=== PATIENT | female | born 1970 | race Hispanic/Latino ===

== ENCOUNTER → 2019-01-06 | Outpatient (CLI) | payer BC ==
[~2019-01-06] MED LIST: ACETAMINOPHEN/CODEINE 300MG - 30MG TAB ONE; ATORVASTATIN CA20 MG PO; CINNAMON500 MG PO; GLIMEPIRIDE4 MG PO; GLUCOPHAGE500 MG PO; HYDRALAZINE HCL50 MG PO; HYZAAR 100-251 EACH PO; LIDOCAINE HCL 1% LOCAL INJ 20 ML VIAL ONE; VITAMIN B COMP1 EACH PO
[2019-01-06 11:10] LABS: APPEARANCE,CSF CLEAR (CLEAR); COLOR,CSF COLORLESS (COLORLESS); TUBE NUMBER 1; WHITE BLOOD CELL,CSF 0 cells/uL (0-5)
--- NOTE | 2019-01-06 13:05 | Diagnostic Imaging Report ---
Exam: Fluoroscopic guided lumbar puncture Clinical History: Headache, visual disturbance Consent: Benefits and risks were explained to the patient who gave consent to the procedure. Complication: None immediate. Fluoro Time: 0.2 Minutes Total Images: 4 Procedure: The patient was placed in prone position. 1% lidocaine was used as local anesthetic. A 20 gauge spinal needle was used to access the thecal sac at [id number] posteriorly under fluoroscopic guidance. The opening pressure, which was measured in prone position, was approximately 27 cm of water. Approximately 19 cc of CSF was obtained and placed in 4 separate vials. The closing pressure, which was measured in prone position, was approximately 14 cm water. The needle was removed. Hemostasis was achieved. The patient tolerated the procedure well without any adverse reactions. She left the department in stable condition. Impression: Successful fluoroscopic guided lumbar puncture as described above. Signed by: Dr. Tito Izaguirre MD on 01/06/2019 1:01 PM
[2019-01-12 15:10] LABS: IGG/ALB RATIO CSF 0.14 (0.00-0.25)
[2019-01-12 22:47] LABS: CSF/SERUM ALBUMIN INDEX 4 (0-8)
[2019-01-14 23:54] LABS: MYELIN BASIC PROTEIN, CSF 3.7 ng/mL (0.0-1.2)
== END ==
LOC: DX 07:17
PROVIDERS: ATTEND Psychiatry & Neurology Neurology
DX: G93.2 Benign intracranial hypertension (principal)
CPT/HCPCS: 36415; 62270; 77003; 82040; 82784; 82945; 83873; 83916; 84157; 87070; 87205; 89051; J2001

== ENCOUNTER → 2019-01-27 | Outpatient (CLI) | payer BC ==
[~2019-01-27] MED LIST changes: -ACETAMINOPHEN/CODEINE 300MG - 30MG TAB ONE; -LIDOCAINE HCL 1% LOCAL INJ 20 ML VIAL ONE
--- NOTE | 2019-01-27 09:13 | Diagnostic Imaging Report ---
EXAM: US RENAL RETROPERITONEAL COMP DATE: 01/27/2019 7:59 AM INDICATION: Chronic kidney disease COMPARISON: None FINDINGS: The right kidney is normal in size measuring 11.3 x 4.6 x 4.9 cm with cortical thickness of 1.7 cm. Cortical echogenicity is mildly increased. There is a simple cyst identified within the right kidney measuring 1.1 x 0.9 x 1.1 cm. There is no evidence for solid renal mass, hydronephrosis, or shadowing calculi. The left kidney is normal in size measuring 11.1 x 5.4 x 3.9 cm with cortical thickness of 1.6 cm. Cortical echogenicity is mildly increased. There is no evidence for solid renal mass, hydronephrosis, or shadowing calculi. The partially distended urinary bladder is grossly unremarkable. Prevoid volume is 167 cc. Bilateral ureteral jets are noted. IMPRESSION: Mildly increased renal cortical echogenicity which can be seen in the setting of medical renal disease. Otherwise, unremarkable renal ultrasound examination. Signed by: Dr. Jude Mays MD on 01/27/2019 9:10 AM
== END ==
LOC: US 07:51
PROVIDERS: ATTEND Internal Medicine Nephrology
DX: N18.3 Chronic kidney disease, stage 3 (moderate) (principal)
CPT/HCPCS: 76770; 76857

== ENCOUNTER 2022-05-08 09:19 | Inpatient (IN) | payer BC ==
[2022-05-07 09:09] LABS: CREATININE, SERUM 1.47 mg/dL (0.57-1.11)
[2022-05-07 09:20] LABS: BASOPHILS # (AUTO) 0.1 (0.0-0.1); BASOPHILS % 0.8 % (0.0-1.0); EOSINOPHILS # (AUTO) 0.7 (0.0-0.4); EOSINOPHILS % 7.2 % (0.0-6.0); HEMATOCRIT 41.3 % (34.2-44.1); HEMOGLOBIN 12.1 g/dL (12.0-16.0); LYMPHOCYTES # (AUTO) 2.6 (1.0-3.2); LYMPHOCYTES % 28.5 % (18.0-39.1); MEAN CORPUSCULAR HEMOGLOBIN 26.5 pg (28-32); MEAN CORPUSCULAR HGB CONC 29.3 g/dL (31-35); MEAN CORPUSCULAR VOLUME 90.4 fL (81-99); MONOCYTES # (AUTO) 0.6 (0.2-0.8); MONOCYTES % 6.2 % (4.4-11.3); NEUTROPHILS # (AUTO) 5.3 (2.1-6.9); NEUTROPHILS % 56.9 % (38.7-80.0); PLATELET COUNT 198 x10e3/uL (140-360); RED BLOOD COUNT 4.57 x10e6/uL (3.6-5.1); RED CELL DISTRIBUTION WIDTH 15.1 % (11.7-14.4)
[~2022-05-08 09:19] MED LIST changes: +ALLOPURINOL100 MG PO; +ASPIRIN81 MG PO; +BENICAR20 MG PO; +COREG12.5 MG PO; +FARXIGA5 MG PO; +FUROSEMIDE40 MG PO; +NOVOLOG100 UNIT/1 SC; +OMEPRAZOLE10 MG PO; +OZEMPIC0.25 MG/0. SC; +TRESIBA100 UNIT/1 SQ; +[UNRECOGNIZED DRUG - OTHER]
[2022-05-08] MEDS ORDERED: PIPERACILLIN/TAZOBACTAM 3.375 GM VIAL ONE (09:31)
[2022-05-08] MEDS ORDERED: GENTAMICIN 80MG/NS 100 ML 200 ML IV ONE (09:31)
[2022-05-08] MEDS ORDERED: REPATHA SY140 MG/1 M SQ (09:38)
[2022-05-08] MEDS ORDERED: POVIDONE IODINE 0.05% 0.05 % ML PO ONE (09:42)
[2022-05-08] MEDS ORDERED: LIDOCAINE HCL 2% LOCAL INJ 5 ML SDV VIAL INJ ONE (09:42)
[2022-05-08] MEDS ORDERED: GLYCOPYRROLATE INJ 0.2 MG/ML VIAL ONE (09:42)
[2022-05-08] MEDS ORDERED: ONDANSETRON HCL INJ 2MG/ML 2ML 2 MG/ML VIAL ONE (09:42)
[2022-05-08] MEDS ORDERED: EPHEDRINE SULFATE INJ 50 MG/ML VIAL ONE (09:42)
[2022-05-08] MEDS ORDERED: SEVOFLURANE INHAL SOLN 250 ML PEN BTL ONE (09:42)
[2022-05-08] MEDS ORDERED: PROPOFOL IV EMULSION 10 MG/ML 20 ML VIAL ONE (09:42)
[2022-05-08] MEDS ORDERED: ROCURONIUM BROMIDE 10 MG/ML 5ML VIAL IV ONE (09:42)
[2022-05-08] MEDS ORDERED: DEXAMETHASONE SOD PHOS INJ 4 MG/ML SDV ONE (09:42)
[2022-05-08] MEDS ORDERED: MIDAZOLAM HCL 2 MG/2 ML VIAL ONE (10:10)
[2022-05-08] MEDS ORDERED: FENTANYL CITRATE/PF 100MCG/2 ML INJ ONE (10:10)
[2022-05-08] MEDS ORDERED: LIDOCAINE 2%/ EPINEPHRINE 20ML MDV ONE (11:28)
[2022-05-08] MEDS ORDERED: GENTAMICIN SULFATE 40 MG/ML 2 ML VIAL ONE (11:28)
[2022-05-08] MEDS ORDERED: METHYLENE BLUE 1% INJ 10 ML VIAL INJ ONE (11:28)
[2022-05-08] MEDS ORDERED: BACITRACIN ZINC 15 GM OINT ONE (11:28)
[2022-05-08] MEDS ORDERED: BUPIVACAINE HCL 0.5% INJ 30 ML VIAL INJ ONE (11:28)
[2022-05-08] MEDS ORDERED: ACETAMINOPHEN 1000 MG/100 ML 100 ML IV ONE (11:29)
[2022-05-08] MEDS ORDERED: SUGAMMADEX SODIUM 200 MG/2 ML VIAL IV ONE (11:29)
[2022-05-08] MEDS ORDERED: IOPAMIDOL 300MG/ML 50ML INFUS..BTL IV ONE (11:29)
[2022-05-08] MEDS ORDERED: TRAMADOL HCL 50 MG TAB PO PRN (11:45)
[2022-05-08] MEDS ORDERED: PHENAZOPYRIDINE HCL 100 MG TAB PO PRN (11:45)
[2022-05-08] MEDS ORDERED: DIPHENHYDRAMINE HCL 25 MG CAP PO PRN (11:45)
[2022-05-08] MEDS ORDERED: ONDANSETRON HCL INJ 2MG/ML 2ML 2 MG/ML VIAL IV PRN (11:45)
[2022-05-08] MEDS ORDERED: ACETAMINOPHEN 1000 MG/100 ML IV PRN (11:45)
[2022-05-08 14:53] LABS: BASOPHILS # (AUTO) 0.1 (0.0-0.1); BASOPHILS % 0.6 % (0.0-1.0); EOSINOPHILS # (AUTO) 0.3 (0.0-0.4); EOSINOPHILS % 2.8 % (0.0-6.0); HEMATOCRIT 40.8 % (34.2-44.1); HEMOGLOBIN 11.9 g/dL (12.0-16.0); LYMPHOCYTES # (AUTO) 1.7 (1.0-3.2); LYMPHOCYTES % 17.7 % (18.0-39.1); MEAN CORPUSCULAR HEMOGLOBIN 26.4 pg (28-32); MEAN CORPUSCULAR HGB CONC 29.2 g/dL (31-35); MEAN CORPUSCULAR VOLUME 90.7 fL (81-99); MONOCYTES # (AUTO) 0.3 (0.2-0.8); MONOCYTES % 2.7 % (4.4-11.3); NEUTROPHILS % 75.6 % (38.7-80.0); PLATELET COUNT 187 x10e3/uL (140-360); RED CELL DISTRIBUTION WIDTH 15.2 % (11.7-14.4)
[2022-05-08 15:09] LABS: ANION GAP 14.4 mmol/L (8-16); CALCIUM 8.9 mg/dL (8.4-10.2); CREATININE, SERUM 1.51 mg/dL (0.57-1.11); POTASSIUM 4.4 mmol/L (3.5-5.1)
[2022-05-08] MEDS ORDERED: DEXTROSE 50% SYRINGE 50 ML IV PRN (15:15)
[2022-05-08] MEDS ORDERED: ACETAMINOPHEN 325 MG TAB PO PRN (15:15)
[2022-05-08] MEDS ORDERED: CLONIDINE HCL 0.1 MG TAB PO PRN (15:15)
[2022-05-08] MEDS: INSULIN REGULAR, HUMAN 100 UNIT/1 ML SQ SCH ×2 (16:30→21:40)
[2022-05-08] MEDS: SODIUM CHLORIDE 0.9% 1000ML 1,000 ML IV SCH (16:47)
[2022-05-08] MEDS: DOCUSATE SODIUM 100 MG CAP PO SCH (17:19)
[2022-05-08] MEDS: ALLOPURINOL 100 MG TAB PO SCH (17:19)
[2022-05-08] MEDS: CARVEDILOL 12.5 MG TAB PO SCH (17:20)
[2022-05-08 17:29] VITALS: BP 151/98
[2022-05-08] MEDS: Morphine 2mg Syringe 2 MG/ML SYR IV PRN ×2 (19:50→23:22)
[2022-05-08 21:00] VITALS: BP 151/98
[2022-05-08 21:40] VITALS: BP 163/72
[2022-05-09] VITALS (7 sets, daily range): BP systolic 100–147; BP diastolic 59–78
[2022-05-09] MEDS: SODIUM CHLORIDE 0.9% 1000ML 1,000 ML IV SCH (04:49)
[2022-05-09 05:32] LABS: BASOPHILS % 0.1 % (0.0-1.0); HEMATOCRIT 35.1 % (34.2-44.1); HEMOGLOBIN 11.2 g/dL (12.0-16.0); LYMPHOCYTES # (AUTO) 1.2 (1.0-3.2); LYMPHOCYTES % 8.3 % (18.0-39.1); MEAN CORPUSCULAR HEMOGLOBIN 26.7 pg (28-32); MEAN CORPUSCULAR HGB CONC 31.9 g/dL (31-35); MEAN CORPUSCULAR VOLUME 83.6 fL (81-99); MONOCYTES # (AUTO) 0.6 (0.2-0.8); MONOCYTES % 4.2 % (4.4-11.3); NEUTROPHILS # (AUTO) 12.7 (2.1-6.9); NEUTROPHILS % 86.9 % (38.7-80.0); PLATELET COUNT 191 x10e3/uL (140-360); RED CELL DISTRIBUTION WIDTH 15.2 % (11.7-14.4)
[2022-05-09 05:53] LABS: ANION GAP 15.6 mmol/L (8-16); CALCIUM 8.5 mg/dL (8.4-10.2); CREATININE, SERUM 1.5 mg/dL (0.57-1.11); POTASSIUM 4.6 mmol/L (3.5-5.1)
[2022-05-09] MEDS: Morphine 2mg Syringe 2 MG/ML SYR IV PRN (07:35)
[2022-05-09] MEDS: INSULIN REGULAR, HUMAN 100 UNIT/1 ML SQ SCH ×4 (08:16→22:12)
[2022-05-09] MEDS ORDERED: AMLODIPINE BESYLATE 5 MG TAB PO SCH (09:00)
[2022-05-09] MEDS ORDERED: ATORVASTATIN 20 MG TAB PO SCH (09:00)
[2022-05-09] MEDS: DOCUSATE SODIUM 100 MG CAP PO SCH ×2 (11:08→17:08)
[2022-05-09] MEDS: ALLOPURINOL 100 MG TAB PO SCH ×2 (11:10→17:08)
[2022-05-09] MEDS ORDERED: TRESIBA FL100 UNIT/1 SC (11:19)
[2022-05-09] MEDS ORDERED: OMEPRAZOLE20 M1 PO (11:19)
[2022-05-09] MEDS ORDERED: FARXIGA10 MG PO (11:20)
[2022-05-09] MEDS: CARVEDILOL 12.5 MG TAB PO SCH ×2 (11:34→17:10)
[2022-05-09] MEDS ORDERED: ACETAMINOPHEN/CODEINE 300MG - 30MG TAB PO PRN (15:00)
[2022-05-09] MEDS: TRAMADOL HCL 50 MG TAB PO PRN (20:27)
[2022-05-10] MEDS: TRAMADOL HCL 50 MG TAB PO PRN ×2 (05:35→14:15)
[2022-05-10 05:46] LABS: BASOPHILS % 0.4 % (0.0-1.0); EOSINOPHILS # (AUTO) 0.2 (0.0-0.4); EOSINOPHILS % 1.9 % (0.0-6.0); HEMATOCRIT 31.1 % (34.2-44.1); HEMOGLOBIN 9.9 g/dL (12.0-16.0); LYMPHOCYTES # (AUTO) 2.9 (1.0-3.2); LYMPHOCYTES % 28.7 % (18.0-39.1); MEAN CORPUSCULAR HEMOGLOBIN 27.1 pg (28-32); MEAN CORPUSCULAR HGB CONC 31.8 g/dL (31-35); MEAN CORPUSCULAR VOLUME 85.2 fL (81-99); MONOCYTES # (AUTO) 0.7 (0.2-0.8); MONOCYTES % 6.6 % (4.4-11.3); NEUTROPHILS # (AUTO) 6.3 (2.1-6.9); NEUTROPHILS % 62.1 % (38.7-80.0); PLATELET COUNT 161 x10e3/uL (140-360); RED BLOOD COUNT 3.65 x10e6/uL (3.6-5.1); RED CELL DISTRIBUTION WIDTH 15.6 % (11.7-14.4)
[2022-05-10 06:08] LABS: ANION GAP 13.1 mmol/L (8-16); CALCIUM 8.5 mg/dL (8.4-10.2); CREATININE, SERUM 1.44 mg/dL (0.57-1.11); POTASSIUM 4.1 mmol/L (3.5-5.1)
[2022-05-10] MEDS: INSULIN REGULAR, HUMAN 100 UNIT/1 ML SQ SCH ×3 (07:30→15:24)
[2022-05-10 07:51] VITALS: BP 153/72
[2022-05-10 08:00] VITALS: BP 153/72
[2022-05-10] MEDS ORDERED: FUROSEMIDE 40 MG TAB PO SCH (09:00)
[2022-05-10] MEDS: ALLOPURINOL 100 MG TAB PO SCH ×2 (09:20→16:39)
[2022-05-10] MEDS: DOCUSATE SODIUM 100 MG CAP PO SCH ×2 (09:20→16:39)
[2022-05-10] MEDS: Morphine 2mg Syringe 2 MG/ML SYR IV PRN (09:21)
[2022-05-10] MEDS: CARVEDILOL 12.5 MG TAB PO SCH ×2 (09:21→16:40)
[2022-05-10 11:50] VITALS: BP 160/75
[2022-05-10] MEDS ORDERED: Morphine 4mg INJECTION 4 MG/ML INJ IV PRN (14:45)
[2022-05-10] MEDS ORDERED: BISACODYL 5 MG TAB EC PO ONE (15:00)
[2022-05-10 15:54] VITALS: BP 136/62
[2022-05-10] MEDS ORDERED: ONDANSETRON HCL 4 MG ORAL DISINTEGRATING TAB PO PRN (17:00)
[2022-05-11] MEDS ORDERED: OLMESARTAN 20 MG TAB PO SCH (09:00)
== END 2022-05-10 18:33 | disposition home or self-care (01) | DRG 748 ==
LOC: OR 09:19 → PACU V 13:32 → MED/SURG2 16:48
PROVIDERS: ADMIT Internal Medicine; ATTEND Internal Medicine
PROC: 0T788ZZ Dilation of Bilateral Ureters, Via Natural or Artificial Opening Endoscopic (ICD-10-PCS; 2022-05-08)
PROC: BT141ZZ Fluoroscopy of Kidneys, Ureters and Bladder using Low Osmolar Contrast (ICD-10-PCS; 2022-05-08)
PROC: 0JUC0KZ Supplement of Pelvic Region Subcutaneous Tissue and Fascia with Nonautologous Tissue Substitute, Open Approach (ICD-10-PCS; principal; 2022-05-08 11:33)
PROC: 0TSD0ZZ Reposition Urethra, Open Approach (ICD-10-PCS; 2022-05-08 11:33)
DX: N81.10 Cystocele, unspecified (principal); E11.22 Type 2 diabetes mellitus with diabetic chronic kidney disease; I12.9 Hypertensive chronic kidney disease with stage 1 through stage 4 chronic kidney disease, or unspecified chronic kidney disease; N18.30 Chronic kidney disease, stage 3 unspecified; E78.2 Mixed hyperlipidemia; E11.69 Type 2 diabetes mellitus with other specified complication; E11.51 Type 2 diabetes mellitus with diabetic peripheral angiopathy without gangrene; Z79.4 Long term (current) use of insulin; Z20.822 Contact with and (suspected) exposure to COVID-19; G47.30 Sleep apnea, unspecified; E66.01 Morbid (severe) obesity due to excess calories; Z68.39 Body mass index [BMI] 39.0-39.9, adult; K21.9 Gastro-esophageal reflux disease without esophagitis; Z87.442 Personal history of urinary calculi; N39.46 Mixed incontinence; N32.81 Overactive bladder
CPT/HCPCS: 0223U; 36415; 74420; 80048; 82948; 83735; 85025; 93005; 94660; 94799; 99251; C1713; C1752; C1758; J1100; J1580; J1817; J2001; J2250; J2270; J2405; J2543; J3010; J7030

== ENCOUNTER 2022-05-31 16:29 | Emergency (ER) | payer BC ==
[~2022-05-31] VITALS: Ht 162.6 cm; Wt 84.8 kg
[~2022-05-31 16:29] MED LIST changes: +FARXIGA10 MG PO; +OMEPRAZOLE20 M1 PO; +REPATHA SY140 MG/1 M SQ; +TRESIBA FL100 UNIT/1 SC
[2022-05-31 18:01] LABS: CLARITY,URINE CLOUDY (CLEAR); COLOR,URINE YELLOW (YELLOW)
[2022-05-31 18:02] LABS: KETONES,URINE NEGATIVE (NEGATIVE); LEUKOCYTE ESTERASE ,URINE MODERATE (NEGATIVE); NITRITE,URINE POSITIVE (NEGATIVE); PROTEIN,URINE DIPSTICK 1+ (NEGATIVE); URINE UROBILINOGEN 0.2 mg/dL (0.2 - 1)
[2022-05-31 18:05] LABS: BACTERIA,URINE MANY /HPF; EPITHELIAL CELLS,URINE FEW /LPF; RBC,URINE >50 /HPF (0-5); WBC,URINE (MAN) >50 /HPF (0-5)
[2022-05-31] MEDS ORDERED: CEFDINIR 300 MG CAP PO ONE (18:15)
[2022-05-31] MEDS ORDERED: CEFDINIR300 MG PO (18:27)
[2022-05-31 19:17] VITALS: BP 148/87
== END 2022-05-31 19:19 | disposition home or self-care (01) ==
LOC: ER 16:33
DX: R39.11 Hesitancy of micturition (principal); N39.0 Urinary tract infection, site not specified
CPT/HCPCS: 81001; 87086; 87186; 99283

== ENCOUNTER → 2024-01-02 | Day surgery (SDC) | payer BC ==
[2023-12-31 13:26] LABS: BASOPHILS # (AUTO) 0.1 (0.0-0.1); BASOPHILS % 0.9 % (0.0-1.0); EOSINOPHILS # (AUTO) 0.2 (0.0-0.4); EOSINOPHILS % 2.7 % (0.0-6.0); HEMATOCRIT 40.7 % (34.2-44.1); HEMOGLOBIN 12.5 g/dL (12.0-16.0); LYMPHOCYTES # (AUTO) 1.8 (1.0-3.2); LYMPHOCYTES % 26.4 % (18.0-39.1); MEAN CORPUSCULAR HGB CONC 30.7 g/dL (31-35); MEAN CORPUSCULAR VOLUME 87.9 fL (81-99); MONOCYTES # (AUTO) 0.5 (0.2-0.8); MONOCYTES % 6.6 % (4.4-11.3); NEUTROPHILS # (AUTO) 4.4 (2.1-6.9); NEUTROPHILS % 63.3 % (38.7-80.0); PLATELET COUNT 175 x10e3/uL (140-360); RED BLOOD COUNT 4.63 x10e6/uL (3.6-5.1); WHITE BLOOD COUNT 6.98 x10e3/uL (4.8-10.8)
[2023-12-31 13:31] LABS: INR 0.94; PROTHROMBIN TIME 13.1 seconds (11.9-14.5)
[2023-12-31 13:32] LABS: PARTIAL THROMBOPLASTIN TIME 28.1 seconds (23.8-35.5)
[2023-12-31 13:35] LABS: CALCIUM 9.7 mg/dL (8.4-10.2); CREATININE, SERUM 1.63 mg/dL (0.57-1.11)
[~2024-01-02] MED LIST changes: +ACETAMINOPHEN 1000 MG/100 ML IV ONE; +BUMETANIDE1 MG PO; +BUPIVACAINE 0.25% 30ML SDV ONE; +CEFDINIR300 MG PO; +DEXAMETHASONE SOD PHOS INJ 4 MG/ML SDV ONE; +EPHEDRINE SULFATE INJ 50 MG/ML VIAL ONE; +FAMOTIDINE 20 MG/2 ML VIAL IV ONE; +FENTANYL CITRATE/PF 100MCG/2 ML INJ ONE; +JARDIANCE10 MG PO; +LACTATED RINGER'S 1,000 ML ONE; +LIDOCAINE HCL 2% LOCAL INJ 5 ML SDV VIAL INJ ONE; +MIDAZOLAM HCL 2 MG/2 ML VIAL ONE; +MINOXIDIL2.5 MG PO; +MOUNJARO12.5 MG/0. SC; +ONDANSETRON HCL INJ 2MG/ML 2ML 2 MG/ML VIAL ONE; +PROPOFOL IV EMULSION 10 MG/ML 20 ML VIAL ONE; +ROCURONIUM BROMIDE 10 MG/ML 5ML VIAL IV ONE; +SEVOFLURANE INHAL SOLN 250 ML PEN BTL ONE
[2024-01-02 11:23] VITALS: TEMP 97.4
[2024-01-02] MEDS: ONDANSETRON HCL INJ 2MG/ML 2ML 2 MG/ML VIAL IV ONE (11:45)
[2024-01-02 12:30] VITALS: BP 139/63; PULSE 63; RESP 16; O2SAT 96
== END | disposition home or self-care (01) ==
LOC: OR 09:09
PROVIDERS: ATTEND Surgery
DX: D17.79 Benign lipomatous neoplasm of other sites (principal); I10 Essential (primary) hypertension; E11.9 Type 2 diabetes mellitus without complications; Z79.4 Long term (current) use of insulin; Z79.85 Long-term (current) use of injectable non-insulin antidiabetic drugs; Z79.84 Long term (current) use of oral hypoglycemic drugs; K21.9 Gastro-esophageal reflux disease without esophagitis; N28.9 Disorder of kidney and ureter, unspecified; E66.9 Obesity, unspecified; R00.1 Bradycardia, unspecified; Z01.812 Encounter for preprocedural laboratory examination; Z01.810 Encounter for preprocedural cardiovascular examination; Z01.818 Encounter for other preprocedural examination; Z79.82 Long term (current) use of aspirin
CPT/HCPCS: 23073; 36415; 80048; 85025; 85610; 85730; 88304; 93005; J0131; J1100; J2001; J2250; J2405; J2704; J3010; J7121

== ENCOUNTER 2024-01-26 19:29 | Emergency (ER) | payer BC ==
[~2024-01-26] VITALS: Ht 160 cm; Wt 103.4 kg
[~2024-01-26 19:29] MED LIST changes: -ACETAMINOPHEN 1000 MG/100 ML IV ONE; -BUPIVACAINE 0.25% 30ML SDV ONE; -DEXAMETHASONE SOD PHOS INJ 4 MG/ML SDV ONE; -EPHEDRINE SULFATE INJ 50 MG/ML VIAL ONE; -FAMOTIDINE 20 MG/2 ML VIAL IV ONE; -FENTANYL CITRATE/PF 100MCG/2 ML INJ ONE; -LACTATED RINGER'S 1,000 ML ONE; -LIDOCAINE HCL 2% LOCAL INJ 5 ML SDV VIAL INJ ONE; -MIDAZOLAM HCL 2 MG/2 ML VIAL ONE; -ONDANSETRON HCL INJ 2MG/ML 2ML 2 MG/ML VIAL ONE; -PROPOFOL IV EMULSION 10 MG/ML 20 ML VIAL ONE; -ROCURONIUM BROMIDE 10 MG/ML 5ML VIAL IV ONE; -SEVOFLURANE INHAL SOLN 250 ML PEN BTL ONE
[2024-01-26 19:57] VITALS: PULSE 79; RESP 18; TEMP 97.6
[2024-01-26] MEDS: TRAMADOL HCL 50 MG TAB PO STA (21:05)
[2024-01-26] MEDS ORDERED: ULTRAM 50MG50 MG PO (22:19)
[2024-01-26 22:50] VITALS: BP 173/73; PULSE 63; RESP 16; TEMP 98; O2SAT 98
== END 2024-01-26 22:32 | disposition home or self-care (01) ==
LOC: ER 19:35
DX: S82.52XA Displaced fracture of medial malleolus of left tibia, initial encounter for closed fracture (principal); M25.561 Pain in right knee; X50.1XXA Overexertion from prolonged static or awkward postures, initial encounter; Y93.01 Activity, walking, marching and hiking; Y92.89 Other specified places as the place of occurrence of the external cause; I10 Essential (primary) hypertension; E11.9 Type 2 diabetes mellitus without complications; E78.5 Hyperlipidemia, unspecified
CPT/HCPCS: 99284